=== PATIENT | male | born 1970 | race Hispanic/Latino ===

== ENCOUNTER 2024-04-21 07:36 | Outpatient (CLI) | payer OTHER ==
[2024-04-21] MEDS ORDERED: Iopamidol 370 76% 100 ML VIAL ONE (13:51)
== END 2024-04-21 07:37 | disposition home or self-care (01) ==
LOC: CT 07:36
PROVIDERS: ATTEND Urology
DX: Z12.5 Encounter for screening for malignant neoplasm of prostate (principal); K76.0 Fatty (change of) liver, not elsewhere classified; R31.29 Other microscopic hematuria
CPT/HCPCS: 74178; Q9967